=== PATIENT | female | born 1940 | race Caucasian/White ===

== ENCOUNTER 2018-03-29 10:18 | Outpatient (CLI) | payer OTHER ==
[~2018-03-29 10:18] MED LIST: DICY20TA PO; PROTONIX40 MG PO
== END 2018-03-29 10:29 | disposition home or self-care (01) ==
LOC: EDBD 10:18 → RAD 501 10:18
DX: E11.42 Type 2 diabetes mellitus with diabetic polyneuropathy (principal); E78.2 Mixed hyperlipidemia; M81.0 Age-related osteoporosis without current pathological fracture; K21.9 Gastro-esophageal reflux disease without esophagitis

== ENCOUNTER 2018-03-29 12:03 | Outpatient (CLI) | payer OTHER | END 2018-03-29 14:49 | disposition home or self-care (01) | LOC: MAMO-SONO 12:03 → EDBD 12:03 → MAMO-SONO 14:49 | DX: Z12.31 Encounter for screening mammogram for malignant neoplasm of breast (principal); Z87.898 Personal history of other specified conditions; N64.4 Mastodynia; E11.42 Type 2 diabetes mellitus with diabetic polyneuropathy; E78.1 Pure hyperglyceridemia; M81.0 Age-related osteoporosis without current pathological fracture; K21.9 Gastro-esophageal reflux disease without esophagitis ==

== ENCOUNTER 2018-04-18 12:38 | Outpatient (CLI) | payer OTHER | END 2018-04-18 12:49 | disposition home or self-care (01) | LOC: NUCLEAR 12:38 → EDBD 13:00 → NUCLEAR 13:00 | DX: E11.42 Type 2 diabetes mellitus with diabetic polyneuropathy (principal); M81.0 Age-related osteoporosis without current pathological fracture; E78.1 Pure hyperglyceridemia; K21.9 Gastro-esophageal reflux disease without esophagitis ==